=== PATIENT | female | born 1985 | race Asian ===

== ENCOUNTER 2019-08-26 15:48 | Emergency (ER) | payer OTHER ==
[~2019-08-26] VITALS: Ht 160 cm; Wt 54.9 kg
[2019-08-26 15:50] VITALS: BP 118/72; Ht 160 cm; Wt 54.9 kg
== END 2019-08-26 16:58 | disposition home or self-care (01) ==
LOC: ED 15:48
DX: Z77.21 Contact with and (suspected) exposure to potentially hazardous body fluids (principal); Z91.013 Allergy to seafood

== ENCOUNTER → 2019-12-02 | Outpatient (REF) | END | disposition home or self-care (01) | LOC: EH 11:30 | DX: Z77.21 Contact with and (suspected) exposure to potentially hazardous body fluids (principal) ==

== ENCOUNTER → 2020-05-22 | Outpatient (CLI) | payer OTHER ==
[2020-05-22 11:41] LABS: ALBUMIN 3.9 g/dL (3.4-5.0); ALKALINE PHOSPHATASE 34 U/L (46-116); ALT/SGPT 19 U/L (14-59); AST/SGOT 14 U/L (15-37); BILIRUBIN DIRECT 0.16 mg/dL (0.0-0.2); BILIRUBIN TOTAL 0.6 mg/dL (0.20-1.00); CALCIUM 9.2 mg/dL (8.5-10.1); CARBON DIOXIDE 28.3 mmol/L (21-32); CHLORIDE SERUM 103 mmol/L (98-107); CHOLESTEROL 195 mg/dL (<200); CREATININE SERUM 0.7 mg/dL (0.6-1.0); GFR1 > 60 mL/min; GLUCOSE SERUM 93 mg/dL (74-106); POTASSIUM SERUM 4.2 mmol/L (3.5-5.1); SODIUM SERUM 138 mmol/L (136-145); TOTAL PROTEIN, SERUM 7.7 g/dL (6.4-8.2); TRIGLYCERIDES 66 mg/dL (<150)
[2020-05-22 11:45] LABS: HDL CHOLESTEROL 64 mg/dL (40-60)
[2020-05-22 11:56] LABS: BASOPHIL % 0.5 % (0-2); PLATELET COUNT 233 x10^3mcL (130-400); RED CELL DISTRIBUTION WIDTH 13.3 % (11.5-14.5)
== END | disposition home or self-care (01) ==
LOC: LB 11:08
DX: Z00.00 Encounter for general adult medical examination without abnormal findings (principal)
CPT/HCPCS: 86480